=== PATIENT | female | born 1970 | race Caucasian/White ===

== ENCOUNTER → 2018-07-26 | Outpatient (CLI) | payer OTHER | LOC: RAD 16:22 | DX: R05 Cough (principal) ==

== ENCOUNTER → 2020-08-27 | Outpatient (CLI) | payer OTHER | LOC: CAT 09:27 | PROVIDERS: ATTEND Nurse Practitioner | DX: K76.0 Fatty (change of) liver, not elsewhere classified (principal); E27.8 Other specified disorders of adrenal gland; N83.202 Unspecified ovarian cyst, left side ==

== ENCOUNTER → 2020-08-28 | Outpatient (CLI) | payer OTHER | LOC: ULTRA 13:45 | PROVIDERS: ATTEND Nurse Practitioner | DX: N83.202 Unspecified ovarian cyst, left side (principal); R10.2 Pelvic and perineal pain ==

== ENCOUNTER 2020-09-30 04:51 | Inpatient (IN) | payer OTHER ==
[~2020-09-30] VITALS: Ht 177.8 cm; Wt 104.8 kg
[2020-09-30] VITALS (7 sets, daily range): BP systolic 132–166; BP diastolic 73–111
[2020-09-30 06:37] LABS: ABSOLUTE NEUTROPHILS 14.9 thou/uL (1.4-8.2); BASOPHILS 0.6 % (0.0-2.0); EOSINOPHILS 0.6 % (0.0-3.0); HEMATOCRIT 43.2 % (37.0-47.0); HEMOGLOBIN 14.4 gm/dL (12.0-15.0); LYMPHOCYTES 7.3 % (24.0-44.0); MCH 30.1 pg (26.0-34.0); MCHC 33.2 g/dL (28.0-37.0); MCV 90.6 fL (80.0-100.0); MONOCYTES 5.6 % (1.0-8.0); PLATELET COUNT 392 thou/uL (150-400); POLYS 85.9 % (36.0-66.0); RBC 4.77 mil/uL (4.20-5.00); RDW 13.6 % (10.5-14.5); WBC 17.4 thou/uL (4.0-11.0)
[2020-09-30 07:01] LABS: ANION GAP 12 mmol/L (7-16); BUN 11 mg/dL (7-18); CALCIUM 9.2 mg/dL (8.5-10.1); CHLORIDE 99 mmol/L (98-107); CO2 24 mmol/L (21-32); CREATININE 0.7 mg/dL (0.6-1.0); GLUCOSE 112 mg/dL (74-106); SODIUM 135 mmol/L (136-145)
[2020-09-30 07:11] LABS: ALBUMIN 3.7 g/dL (3.4-5.0); SGOT 33 U/L (15-37); SGPT 67 U/L (30-65); TOTAL BILIRUBIN 0.9 mg/dL (0.2-1.0); TOTAL PROTEIN 7.2 g/dL (6.4-8.2); TROPONIN-I <0.06 ng/mL (<0.06)
[2020-09-30] MEDS ORDERED: CIPRO500 M1 PO (07:15)
[2020-09-30] MEDS ORDERED: ASA81BEC PO (07:15)
[2020-09-30] MEDS ORDERED: FLAGYL500 M1 PO (07:15)
[2020-09-30] MEDS ORDERED: NORVASC5 MG PO ×2 (07:19→07:20)
[2020-09-30] MEDS ORDERED: PROZAC20 M1 PO (07:28)
[2020-09-30] MEDS ORDERED: LOSARTAN-HCTZ1 EAC3 PO (07:28)
[2020-09-30 07:43] LABS: URINE BILIRUBIN NEGATIVE (Negative); URINE BLOOD NEGATIVE (Negative); URINE CLARITY CLEAR; URINE COLOR YELLOW; URINE GLUCOSE-RANDOM* NEGATIVE (Negative); URINE KETONES TRACE (Negative); URINE LEUKOCYTES-REFLEX NEGATIVE (Negative); URINE NITRITE-REFLEX NEGATIVE (Negative); URINE PROTEIN (DIPSTICK) NEGATIVE (Negative); URINE UROBILINOGEN 0.2 E.U./dl (0.2-1.0)
--- NOTE | 2020-09-30 15:04 | NUR ---
ASSESSMENT: CM REVIEWED CHART AND MET WITH PT AND HER SPOUSE AT THE BEDSIDE. PT WAS ADMITTED DUE TO PELVIC PAIN. CT SHOWING DIVERTICULITIS AND EDOMETRIAL FLUID COLLECTION AND ADRENAL MASS. PT IS CURRENTLY ON IV ANBX AND ID HAS BEEN CONSULTED. GI CONSULT, PAID SEARCH MARKETING STRATEGIST CONSULT, GENERAL SURGERY CONSULT WELL. PT REPORTS LIVING IN A HOUSE WITH HER . PT REPORTS A FEW STEPS TO ENTER AND NO STEPS SHE HAS TO USE ONCE INSIDE STATING ALL HER NEEDS ARE ON THE MAIN LEVEL. PT REPORTS BEING INDEPENDENT WITH ADLS AND AMBULATION. PT HAS NO PAST HX OF HH OR SNF. CM DISCUSSED ROLE. PT DOES NOT ANTICIPATE HAVING ANY NEEDS FROM CM. CM WILL CONTINUE TO FOLLOW.
--- NOTE | 2020-09-30 16:18 | EKG ---
[address] [address] ELECTROCARDIOGRAM REPORT Name: CHRISTI FELIZ Room #: 363-P ADM IN M.R.#: [id number] Admission: 09/30/20 Attend Phys: Darrius Delacruz MD Discharge: Date of : 66 Report #: [id number] [facility] ED Test Date: 2020-09-30 Test Time: 05:54:23 Pat Name: CHRISTI FELIZ Department: Room: 363 Gender: F [place] Aud[place]: del : 1970 Requested By: Jocelyn Raymond Order Number: [id number] MD: Ishan Bautista Measurements Intervals Rochert Rate: 80 P: 17 MN: 150 QRS: -14 QRSD: 94 T: 14 QT: 383 QTc: 442 Interpretive Statements Sinus rhythm No previous ECG available for comparison Electronically Signed On 09-30-2020 16:18:41 CDT by Ishan Bautista [email or web address] <ELECTRONICALLY SIGNED> By: Ishan Bautista MD, [facility] 09/30/20 1618 [id number] [id number] Ishan Bautista MD, FACC /EPI
--- NOTE | 2020-09-30 18:21 | NUR ---
PT ADMITTED FROM ER ABOUT 1300PM, PT IS A&OX3, PT 'S VS ARE STABLE, PT STARTS IV FLUID AND IV ABX, PT'S VS ARE STABLE, PT'S ABD PAIN AND N/V HAVE IMPROVED.
--- NOTE | 2020-10-01 03:04 | NUR ---
PT IS A/O X4 AND IS UP AD JUMANA IN ROOM. ON ROOM AIR. VOIDS PER TOILET. NO BM THIS SHIFT. C/O ABDOMINAL PAIN. PRN PAIN MEDICATION GIVEN DIRECTED. VSS. AFEBRILE. CALL LIGHT IS WITHIN REACH. CALLS OUT APPROPRIATELY. WILL CONTINUE TO MONITOR.
[2020-10-01 04:29] VITALS: BP 173/92
[2020-10-01 05:30] LABS: HEMATOCRIT 39.9 % (37.0-47.0); HEMOGLOBIN 13.4 gm/dL (12.0-15.0); MCH 30.5 pg (26.0-34.0); MCHC 33.7 g/dL (28.0-37.0); MCV 90.5 fL (80.0-100.0); RBC 4.41 mil/uL (4.20-5.00); RDW 13.5 % (10.5-14.5); WBC 16.8 thou/uL (4.0-11.0)
[2020-10-01 06:03] LABS: CALCIUM 8.5 mg/dL (8.5-10.1); CREATININE 0.7 mg/dL (0.6-1.0); MAGNESIUM 1.8 mg/dL (1.8-2.4)
[2020-10-01 06:07] LABS: POTASSIUM 2.9 mmol/L (3.5-5.1)
[2020-10-01 07:41] VITALS: BP 183/91
--- NOTE | 2020-10-01 11:16 | NUR ---
ASSUMED PT CARE THIS AM. PT A&OX4. PATIENT REMAINS CONTINENT, AMBULATES INDEPENDENTLY. RECEIVED AN ORDER FOR TYLENOL FOR HEADACHE PAIN, REPORTED DECREASED PAIN WHEN REASSESSED. IV PATENT, FLUIDS INFUSING WELL. GIVING PO POTASSIUM REPLACEMENT ORDERED. FALL PRECAUTIONS IN PLACE, CALL LIGHT IN REACH.
[2020-10-01 11:19] VITALS: BP 143/73
--- NOTE | 2020-10-01 12:24 | HC ---
[facility] [place] [address] CONSULTATION Name: CHRISTI FELIZ Room #: 363-P ADM IN M.R.#: [id number] Admission: 09/30/20 Attend Phys: Darrius Delacruz MD Discharge: Date of : 66 Report #: [id number] THIS REPORT FOR: cc: Laron Morelos James A. DO Barry, Joseph W. MD ~ DOC #: [id number] Jake Bell MD DATE OF SERVICE: 09/30/2020 INFECTIOUS DISEASE CONSULTATION ATTENDING PHYSICIAN: Dr. Delacruz. REASON FOR EVALUATION: Acute sigmoid diverticulitis. HISTORY OF PRESENT ILLNESS: This 50-year-old has history of hypertension, depression, apparently has been ill for a number of days, has been evaluated and was found to have some endometrial fluid collection, uncertain etiology. The patient was treated empirically with combination therapy, ciprofloxacin and Flagyl, had been treated for about 9 days of a planned 10-day course, presented with persistent pain, did have associated nausea without diarrhea, not clear that she had fevers, although did admit to chills, some anorexia with poor p.o. intake. Denied any pulmonary-related complaints. Evaluation was undertaken, leukocytosis with white count of 17.4. Chest x-ray was otherwise unremarkable. CT abdomen and pelvis with three particular abnormalities including acute sigmoid diverticulitis, also the above-mentioned endometrial fluid collection and an adrenal mass that apparently had been seen on previous CT, it increased in size, on the right side. CTA chest showed no evidence of PE and was given a single dose of piperacillin and tazobactam, was evaluated by surgery. No surgical indication favored V antibiotics. ALLERGIES: None known. MEDICATIONS: Include fluoxetine, amlodipine, aspirin, Zosyn, tramadol, ondansetron as needed. PAST MEDICAL HISTORY: Hypertension, depression, adrenal mass. SOCIAL HISTORY: Occasional ethanol. Former smoker. No illicit drug use. FAMILY HISTORY: Noncontributory. REVIEW OF SYSTEMS: Otherwise, unremarkable. PHYSICAL EXAMINATION: [facility] [address] [place] [address] CONSULTATION Name: CHRISTI FELIZ Room #: 363-P [facility] IN ..#: [id number] Admission: 09/30/20 Attend Phys: Darrius Delacruz MD Discharge: Date of : 66 Report #: [id number] GENERAL: She is alert, cooperative, mild to moderate distress, reasonably well nourished. VITAL SIGNS: Temperature 98.3, pulse 82, respirations 18, blood pressure 132/87. SKIN: Warm, dry, no rashes. HEENT: Normocephalic. Extraocular muscles intact. NECK: Supple. LUNGS: Clear breath sounds. HEART: Regular. I do not appreciate a murmur. ABDOMEN: Soft, is somewhat tender to palpation, primarily in the lower quadrants. No overt peritoneal signs. GENITOURINARY AND RECTAL: Deferred. LABORATORY DATA: Imaging as noted above. Lactic acid 1.4. Troponin less than 0.06. Urinalysis unremarkable. Electrolytes: Sodium 135, potassium 4, chloride 99, bicarbonate is 24, anion gap of 12, BUN and creatinine 11 and 0.7, glucose of 112, AST 33, ALT of 67, albumin 37, total protein 7.2. D-dimer 0.64. Lipase of 81. ASSESSMENT AND PLAN: Acute sigmoid diverticulitis in a patient who has not had previous experiences that she is aware of. She is not aware of any imaging confirmed that diverticulosis either. We will continue empiric therapy with piperacillin and tazobactam, could give us good coverage for presumed mixed etiology as well as including aerobes, anaerobes, gram negatives, see how she does clinically. Ideally, would resolve with conservative measures including antibiotics and see how she does. Two to three days ____ transition to p.o. antibiotics prior to discharge. Noted other issues with the fluid collection may need evaluation from gynecology, left adrenal mass. It is not clear whether she is a candidate for percutaneous access. We will continue to monitor expectantly. Add incentive spirometry. Supportive care. MD WHIT Mejia/WILL/KRISTIE <ELECTRONICALLY SIGNED> By: Jake Bell MD 10/01/20 1224 [id number] Jake Bell MD /nt
--- NOTE | 2020-10-01 15:11 | NUR ---
SW reviewed chart and spoke with nursing and attending physician. Pt is progressing towards goals for discharge. Pt is on IV abx. Pt's diet advanced to full liquids today. Plan for outpatient colonoscopy in 4-6 weeks per GI. Pt will discharge home when medically stable. [facility]TWON is following to assist as needed with discharge planning.
[2020-10-01 16:04] VITALS: BP 129/83
[2020-10-01 20:29] VITALS: BP 141/84
[2020-10-02 04:55] VITALS: BP 155/91
[2020-10-02 05:26] LABS: HEMATOCRIT 37.9 % (37.0-47.0); HEMOGLOBIN 12.5 gm/dL (12.0-15.0); MCH 30.4 pg (26.0-34.0); MCHC 32.8 g/dL (28.0-37.0); MCV 92.7 fL (80.0-100.0); RBC 4.09 mil/uL (4.20-5.00); RDW 13.4 % (10.5-14.5); WBC 16.5 thou/uL (4.0-11.0)
[2020-10-02 05:34] LABS: CALCIUM 8.5 mg/dL (8.5-10.1); CREATININE 0.6 mg/dL (0.6-1.0); MAGNESIUM 1.9 mg/dL (1.8-2.4); POTASSIUM 3.5 mmol/L (3.5-5.1)
--- NOTE | 2020-10-02 07:33 | NUR ---
PT MAKING SLOW PROGRESS TOWARDS GOALS. C/O PAIN, HEADACHE. MILD RELIEF WITH TYLENOL LAST NIGHT. PT REPORTS MORE RELIEF WITH ULTRAM THIS AM. PT REPORTING CONSTANT LEVEL OF ABDOMINAL PAIN. SEE CHARTING.
[2020-10-02 08:03] VITALS: BP 139/79
--- NOTE | 2020-10-02 11:09 | NUR ---
Per Dr. Bell need repeat CT today. Pt A/O, able to participate in rounds.
--- NOTE | 2020-10-02 13:31 | NUR ---
SW reviewed chart and spoke with nursing and attending physician. Pt is slowly progressing towards goals for discharge. Pt remains on IV abx. Pt is on a full liquid diet. Pt was off the unit earlier having abdominal/pelvis CT. No weekend discharge anticipated. Plan is for pt to discharge home when medically stable. ANTWON is following to assist as needed with discharge planning.
[2020-10-02 19:58] VITALS: BP 132/78
[2020-10-03 04:48] VITALS: BP 170/93
--- NOTE | 2020-10-03 06:11 | NUR ---
Patient making slow progress towards outcme goals. Good pain control with Toradol and Tramadol. Up adlib, gait steady. IVFluids infusing. Difficult IV stick. @$ hour urine collection in place. Vital signs stable.
[2020-10-03 07:54] LABS: HEMATOCRIT 41.2 % (37.0-47.0); HEMOGLOBIN 13.6 gm/dL (12.0-15.0); MCH 30.4 pg (26.0-34.0); MCHC 33.1 g/dL (28.0-37.0); MCV 91.8 fL (80.0-100.0); RBC 4.48 mil/uL (4.20-5.00); RDW 13.8 % (10.5-14.5); WBC 13.9 thou/uL (4.0-11.0)
[2020-10-03 08:07] VITALS: BP 147/86
[2020-10-03 08:11] LABS: CREATININE 0.6 mg/dL (0.6-1.0); MAGNESIUM 2.1 mg/dL (1.8-2.4); POTASSIUM 3.9 mmol/L (3.5-5.1)
[2020-10-03 16:48] VITALS: BP 135/80
[2020-10-03 19:36] VITALS: BP 129/67
--- NOTE | 2020-10-03 19:52 | NUR ---
RN ASSUMED PT'S CARE AT O700AM, PT IS A&OX4, PT IS CONTINUING IV ABX, PT'S VS ARE STABLE, PT DENIES ABD PAIN AND N/V AT DAY SHIFT.
--- NOTE | 2020-10-04 02:29 | NUR ---
ASSESSMENT: PT REMAIN ALERT AND ORIENT TIMES FOUR. UP AD JUMANA TO BR. VSS, AFEBRILE. SR, NOT BEING MONITORED R/T MS STATUS. DENIES ABD PAIN. RECEIVING ANTIBX'S IVPB. L AC PATENT. 24 URINE COLLECTION DONE, RESULTS PENDING. GOOD PROGRESS TOWARDS DC GOALS.
[2020-10-04 04:39] VITALS: BP 150/89
[2020-10-04 04:57] LABS: CALCIUM 8.8 mg/dL (8.5-10.1); CREATININE 0.7 mg/dL (0.6-1.0); POTASSIUM 3.3 mmol/L (3.5-5.1)
[2020-10-04 04:58] LABS: HEMATOCRIT 36.6 % (37.0-47.0); HEMOGLOBIN 12.5 gm/dL (12.0-15.0); MONOCYTES 9.4 % (1.0-8.0); RBC 4.04 mil/uL (4.20-5.00)
[2020-10-04 05:02] LABS: ABSOLUTE NEUTROPHILS 9.3 thou/uL (1.4-8.2); BASOPHILS 1.1 % (0.0-2.0); LYMPHOCYTES 16.1 % (24.0-44.0); MCHC 34.2 g/dL (28.0-37.0); MCV 90.5 fL (80.0-100.0); PLATELET COUNT 442 thou/uL (150-400); POLYS 71.4 % (36.0-66.0); RDW 13.6 % (10.5-14.5)
[2020-10-04 07:25] VITALS: BP 139/87
[2020-10-04 15:11] VITALS: BP 140/91
--- NOTE | 2020-10-04 18:46 | NUR ---
RN ASSUMED PT'S CARE AT 0700AM, PT IS A&OX 4, PT IS CONTINUING IV ABX , PT'S VS ARE STABLE, PT GETS UP TO WALK IN HALLWAY, PT DENIES PAIN AND N/V BY THIS TIME.
[2020-10-04 19:18] VITALS: BP 134/90
[2020-10-05 04:04] VITALS: BP 151/89
[2020-10-05 05:25] LABS: HEMATOCRIT 39.2 % (37.0-47.0); HEMOGLOBIN 13.2 gm/dL (12.0-15.0); MCH 30.6 pg (26.0-34.0); MCHC 33.7 g/dL (28.0-37.0); MCV 90.8 fL (80.0-100.0); RBC 4.32 mil/uL (4.20-5.00); RDW 13.7 % (10.5-14.5); WBC 11.1 thou/uL (4.0-11.0)
[2020-10-05 05:31] LABS: CALCIUM 8.6 mg/dL (8.5-10.1); CREATININE 0.6 mg/dL (0.6-1.0); POTASSIUM 3.6 mmol/L (3.5-5.1)
--- NOTE | 2020-10-05 05:32 | NUR ---
C/O headache ,tylenol given with good relief. Ambulated in hallway last night. Tolerating room air well and she has been a febrile. She stated she slept well last night. Deies any other concern. Making some progress towards care plan goals.
[2020-10-05 07:04] VITALS: BP 132/76
[2020-10-05] MEDS ORDERED: AMOX TR-K CLV1 EAC4 PO (11:55)
[2020-10-05 12:16] VITALS: BP 132/76
--- NOTE | 2020-10-05 13:54 | NUR ---
DISCHARGE NOTE: SW reviewed chart and spoke with nursing and attending physician. Pt is medically stable for discharge home today. No discharge needs identified at this time. Pt's family to provide transportation home. SW is available to assist should needs arise.
--- NOTE | 2020-10-05 14:04 | NUR ---
RN ASSUMED PT'S CARE AT 0700AM, PT IS A&OX3, PT 'S ABD PAIN AND INFECTION HAVE IMPROVED, PT'S IV ABX HAS CHANGED TO PO, PT'S VS ARE STABLE,RN RECEIVED TO DC PT TO HOME, PT UNDERSTANDED DC TEACHING WELL, PT'S FAMILY PUBLIC HEALTH ANALYST PT TO HOME NOW.
[2020-10-06 17:06] LABS: RENIN 2.596 ng/mL/hr (0.167-5.380)
== END 2020-10-05 14:17 | disposition home or self-care (01) | DRG 872 ==
LOC: ER 04:51 → 3W 11:19 → EROBS 11:19 → 3W 12:32
PROVIDERS: Emergency Medicine; Hospitalist; Internal Medicine; Surgery; ADMIT Internal Medicine; ATTEND Internal Medicine
DX: A41.9 Sepsis, unspecified organism (principal); K57.20 Diverticulitis of large intestine with perforation and abscess without bleeding; E27.9 Disorder of adrenal gland, unspecified; F32.9 Major depressive disorder, single episode, unspecified; E66.9 Obesity, unspecified; I10 Essential (primary) hypertension; N71.9 Inflammatory disease of uterus, unspecified; Z79.82 Long term (current) use of aspirin; Z79.899 Other long term (current) drug therapy; Z87.891 Personal history of nicotine dependence; Z90.49 Acquired absence of other specified parts of digestive tract; Z68.33 Body mass index [BMI] 33.0-33.9, adult
CPT/HCPCS: 10080

== ENCOUNTER → 2020-11-02 | Outpatient (CLI) | payer OTHER ==
[~2020-11-02] MED LIST: AMOX TR-K CLV1 EAC4 PO; ASA81BEC PO; CIPRO500 M1 PO; FLAGYL500 M1 PO; LOSARTAN-HCTZ1 EAC3 PO; NORVASC5 MG PO; PROZAC20 M1 PO
== END ==
LOC: CAT 10-28 15:17
PROVIDERS: ATTEND Family Medicine
DX: K57.30 Diverticulosis of large intestine without perforation or abscess without bleeding (principal); M62.89 Other specified disorders of muscle

== ENCOUNTER → 2020-11-20 | Outpatient (CLI) | payer OTHER ==
[~2020-11-20] VITALS: Ht 177.8 cm; Wt 102.1 kg
[~2020-11-20] MED LIST changes: +AUGMENTIN 875-1 EACH PO
--- NOTE | 2020-11-21 09:41 | P ---
[facility] [place] [address] PROCEDURE REPORT Name: CHRISTI FELIZ Room #: REG [facility] Alissa#: [id number] Admission: 11/20/20 Attend Phys: Piyush Banegas Discharge: Date of : 66 Report #: [id number] THIS REPORT FOR: cc: Laron Morelos James A. DO McElhinney, Christian C. MD ~ cc: Laron Morelos DO DATE OF SERVICE: 11/20/2020 PROCEDURE PERFORMED: Colonoscopy with biopsies. HISTORY OF PRESENT ILLNESS: The patient is a 50-year-old female who was admitted in September for a first episode of diverticulitis, left lower quadrant abdominal pain. CT scan on 10/01/2020 showing changes of acute diverticulitis without abscess. The patient was treated with IV antibiotics, later p.o. antibiotics. She has now required 3-4 courses of oral antibiotics. Whenever she finishes the antibiotics, she has recurrent left lower quadrant abdominal pain and typically is not having pain while on the antibiotics. She did have a repeat CT scan on 11/02/2020, which shows the previous diverticulitis has resolved. She also had right adrenal mass that was unchanged from previous CT. The patient has never had a colonoscopy before. No family history of colon cancer. DESCRIPTION OF PROCEDURE: The risks and benefits of the procedure were explained to the patient, those risks including but not limited to bleeding, perforation and the risk of sedation. She understood these risks and gave informed consent. Sedation was given using propofol per Anesthesia. Next, a digital rectal exam was initially performed, which was normal. Next, using a pediatric Olympus colonoscope, the scope was placed in the patient's anus and advanced under direct vision to the cecum. The overall prep was excellent. The cecum and ileocecal valve were normal in appearance. Ascending, transverse, descending colon were normal. Multiple small diverticula were noted in the sigmoid colon. No evidence of inflammation, otherwise normal. In the rectum, a 3 mm sessile polyp was noted. This was removed with cold forceps. On retroflexion, no abnormalities were noted. The scope was then withdrawn and the procedure terminated. The patient tolerated the procedure well. IMPRESSION: 1. Sigmoid diverticulosis without evidence of inflammation. 2. Small rectal polyp. 3. Otherwise, normal colonoscopy. RECOMMENDATIONS: 1. Await biopsy results. 2. If polyp is hyperplastic repeat in 10 years, if adenomatous polyp repeat in [address] [address] PROCEDURE REPORT Name: CHRISTI FELIZ Room #: REG [facility] Alissa#: [id number] Admission: 11/20/20 Attend Phys: Piyush Banegas Discharge: Date of : 66 Report #: [id number] [address] shows resolution of diverticulitis. No evidence of inflammation in the diverticula and the sigmoid colon on endoscopy today. Unclear why the patient is having pain after finishing the antibiotics. At this time, we will add Levsin and complete this next course of antibiotics and see if this is helpful. Thank you for allowing me to participate in her care. <ELECTRONICALLY SIGNED> By: Piyush Lyons MD 11/21/20 0941 [id number] [id number] Piyush Lyons MD /nt
--- NOTE | 2020-11-23 18:06 | PATH ---
[facility] [address] [place] [address] PATHOLOGY RPT PROCEDURE Name: LEYDA FELIZ Room #: REG [facility] Pooja.#: [id number] Admission: 11/20/20 Date of : 66 Discharge: Report #: [id number] Path Case #: [id number] [facility] Accession Number: [id number] . 01 Material submitted: . rectum - BIOPSY RECTAL POLYP . 01 Clinical history: . COLONOSCOPY DIVERTICULITIS . 02 Diagnosis: Polyp, rectal polyp, endoscopic biopsy: - Hyperplastic polyp. - Negative for dysplasia. (IUV/db; 11/23/2020) LBQ 11/23/2020 1516 Local . 02 Electronically signed: . Piedad Bassett MD, Pathologist NPI- [id number] . 01 Gross description: . The specimen is received in formalin, labeled "Leyda Wollerman, biopsy rectal polyp". Received are two segments of pale abdul tissue measuring 0.3 and 0.5 cm in maximum dimensions. The specimen is submitted entirely in cassette A1. (CAA; 11/22/2020) QAC/QAC 11/22/2020 1510 Local . 02 Pathologist provided ICD-10: K62.1 . 02 CPT . 058888 Specimen Comment: A courtesy copy of this report has been sent to [phone], [phone]- Specimen Comment: [id number] Specimen Comment: Report sent to / DR ALEX Performed at: [address], [place] [id number] MD Magnus Chinchilla MD Phone: [phone] Performed at: [address] [id number] MD Piedad Bassett MD Phone: [phone]
== END | disposition home or self-care (01) ==
LOC: GI 06:55
PROVIDERS: ATTEND Specialist
DX: R10.32 Left lower quadrant pain (principal); K62.1 Rectal polyp; K57.30 Diverticulosis of large intestine without perforation or abscess without bleeding; I10 Essential (primary) hypertension; Z98.890 Other specified postprocedural states; Z79.899 Other long term (current) drug therapy; Z87.891 Personal history of nicotine dependence; Z87.19 Personal history of other diseases of the digestive system
CPT/HCPCS: 62110; 62900

== ENCOUNTER → 2021-01-14 | Outpatient (CLI) | payer OTHER ==
[~2021-01-14] MED LIST changes: +ATENOLOL 25 MG25 M1 PO; +DOXAZOSIN MESYLA2 MG PO; +PROZAC40 MG PO; +VITAMIN C500 M2 PO
[2021-01-14 08:24] LABS: HEMATOCRIT 42.6 % (37.0-47.0); HEMOGLOBIN 14.4 gm/dL (12.0-15.0); MCH 30.6 pg (26.0-34.0); MCHC 33.8 g/dL (28.0-37.0); MCV 90.4 fL (80.0-100.0); RBC 4.71 mil/uL (4.20-5.00); RDW 14.8 % (10.5-14.5); WBC 10.3 thou/uL (4.0-11.0)
[2021-01-14 08:41] LABS: CALCIUM 9.1 mg/dL (8.5-10.1); CREATININE 0.9 mg/dL (0.6-1.0)
== END ==
LOC: PAC 07:54
PROVIDERS: ATTEND Surgery
DX: Z01.812 Encounter for preprocedural laboratory examination (principal); I10 Essential (primary) hypertension

== ENCOUNTER 2021-01-27 08:55 | Inpatient (IN) | payer OTHER ==
[~2021-01-27] VITALS: Ht 177.8 cm; Wt 99.8 kg
[2021-01-27 11:31] VITALS: BP 134/72
[2021-01-27 16:10] LABS: HEMATOCRIT 38.5 % (37.0-47.0); HEMOGLOBIN 12.5 gm/dL (12.0-15.0); MCH 29.8 pg (26.0-34.0); MCHC 32.6 g/dL (28.0-37.0); MCV 91.4 fL (80.0-100.0); RBC 4.21 mil/uL (4.20-5.00); RDW 14.2 % (10.5-14.5); WBC 17.8 thou/uL (4.0-11.0)
[2021-01-27 16:32] LABS: CALCIUM 7.8 mg/dL (8.5-10.1); CREATININE 0.9 mg/dL (0.6-1.0); POTASSIUM 3.8 mmol/L (3.5-5.1)
[2021-01-27 16:34] LABS: APTT 25.4 Seconds (24.5-32.8); PROTIME 10.9 Seconds (10.5-12.1)
[2021-01-27 16:39] LABS: ALBUMIN 3.1 g/dL (3.4-5.0); TOTAL BILIRUBIN 0.6 mg/dL (0.2-1.0); TOTAL PROTEIN 6.3 g/dL (6.4-8.2)
--- NOTE | 2021-01-27 20:27 | NUR ---
Spoke with Dr. Ramirez informed him of patients vital signs and that no output from MICHEAL drain. Md stated to keep map >than 60 and to have the patient out of bed in the morning. chlorinator RN aware Changed A line pressure bag to 0.9% NS. .
[2021-01-28] VITALS (22 sets, daily range): BP systolic 82–110; BP diastolic 40–59
[2021-01-28 05:07] LABS: HEMATOCRIT 31.8 % (37.0-47.0); HEMOGLOBIN 10.8 gm/dL (12.0-15.0); MCH 31.5 pg (26.0-34.0); MCHC 33.9 g/dL (28.0-37.0); MCV 92.9 fL (80.0-100.0); RBC 3.42 mil/uL (4.20-5.00); RDW 14.5 % (10.5-14.5); WBC 15.1 thou/uL (4.0-11.0)
[2021-01-28 05:39] LABS: ALBUMIN 2.7 g/dL (3.4-5.0); CALCIUM 7.6 mg/dL (8.5-10.1); CREATININE 1.1 mg/dL (0.6-1.0); MAGNESIUM 1.6 mg/dL (1.8-2.4); PHOSPHORUS 2.9 mg/dL (2.5-4.9)
--- NOTE | 2021-01-28 15:07 | NUR ---
Chart review, POD # 1, discuss during unit rounds. Visited wit her spouse karina [phone]. Intro to cm and dcp. She lives at home with her . 2 step to enter the home and 13 stairs inside home. Independent. No dme. manage own medication. Drives vehicle. No hh or rehab in past. PCP Dr Morelos. No anticipated dc needs. Staying in icu r/t her b/p. Will cont following as needed for dc needs.
--- NOTE | 2021-01-28 15:51 | NUR ---
ALERT AND ORIENTED, UP TO THE CHAIR EARLIER TODAY AND TOLERATED WELL. MEDICATED FOR PAIN WITH SCHEDULED MEDS. TOLERATING DIET BUT POOR APPETITE. MARGINAL BP PER NON INVASICE CUFF AND DR. PRETTY NOTIFIED, NS BOLUS ORDERED AND ADMINISTERED. DR. WOODRUFF ROUNDED ON PATIENT AND ORDERED ANOTHER NS BOLUS. PATIENT'S BP CONTINUES TO BE MARGINAL AND ANOTHER BOLUS ORDERED BY DR. PRETTY AND ADMINISTERED. ORDERS RECEIVED TO US A-LINE BP AND KEEP MAP >55. SPOUSE AT THE BEDSIDE ALL DAY AND UPDATED.
[2021-01-29] VITALS (19 sets, daily range): BP systolic 84–110; BP diastolic 49–69
--- NOTE | 2021-01-29 03:49 | NUR ---
PT REMAIN ALERT AND ORIENT TIMES FOUR. UP TO BSC WITH STEADY GAIT, SBA R/T TUBING. NO BM THIS SHIFT. DID HAVE ADEQUATE UO OF 750 CURRENTLY. MAP PER ART LINE RANGED FROM 63-76. AFEBRILE. C/O UPPER RIGHT ABD QUAD PAIN. PRN OXYCONDONE ONE TAB PROVIDED ADEQUATE RELIEF OF PAIN PER PT. SLEPT MOST OF THE NIGHT. DENIED N/V AND SOB. DID C/O OF GASTRIC REFLUX AND REQUESTED TO HAVE MILK. PROTONIX TO START TODAY. TOLERATING PO INTAKE. SR PER MONITOR. NO LABS WERE ORDER FOR THIS AM. GOOD PROGRESS TOWARDS DC GOALS. WILL CONTINUE TO MONITOR.
[2021-01-29 11:37] LABS: HEMATOCRIT 30.3 % (37.0-47.0); HEMOGLOBIN 9.8 gm/dL (12.0-15.0); MCH 30.1 pg (26.0-34.0); MCHC 32.2 g/dL (28.0-37.0); MCV 93.5 fL (80.0-100.0); RBC 3.24 mil/uL (4.20-5.00); RDW 14.4 % (10.5-14.5); WBC 13.8 thou/uL (4.0-11.0)
[2021-01-29 11:51] LABS: ALBUMIN 2.7 g/dL (3.4-5.0); CALCIUM 7.9 mg/dL (8.5-10.1); CREATININE 0.9 mg/dL (0.6-1.0); PHOSPHORUS 1.6 mg/dL (2.5-4.9); POTASSIUM 3.9 mmol/L (3.5-5.1)
--- NOTE | 2021-01-29 12:32 | NUR ---
Discussed during unit rounds, possible able to move out to the floor. When medically stable to dc, home. No anticipated dc needs. dcp: home.
--- NOTE | 2021-01-29 17:39 | NUR ---
ASSUMED PT CARE AT 1700 FROM 2N. PT SI ALERT & ORIENTED 4. PT HAS IV SITE ON R IJ TRIPLE LUMEN PICC LINE. PT IS UP WITH ASSIST X1 TO THE BATHROOM. PT HAS MICHEAL DRAIN. PT TOLERATED MEDICATION AND DIET WELL. PT IS ON ROOM AIR DURING DAY AND USES 02 2L NC DURING NIGHT. PT WAS AT THE BEDSIDE. WILL CONTINUE TO MONITOR PT. FOLLOW POC.
--- NOTE | 2021-01-30 03:22 | NUR ---
ASSUMED CARE OF PT AT 1900. BEDSIDE REPORT RECIEVED. AT BEDSIDE. TIERNEY ASSESSMENT COMPLETE. MEDS ADMINISTERED ORDERED. PT DENIES ANY PAIN, REPORT PAIN LEVEL 2/10 ON RIGHT SIDE OF ABDOMEN BUT REPORTS TOLERABLE/COMFORTABLE LEVEL. R TL IJ CDI. R MICHEAL DRAIN CDI AND SECURED C TEGADERM. R ABDOMINAL INCISION IS CLEAN C NO DRAINAGE/REDNESS OR HEAT TO SITE. ASSISTED PT TO BATHROOM C SBA. ABDOMINAL BINDER REMOVED FOR COMFORT FOR SLEEP. PTS CALL LIGHT WAS PULED FROM WALL, RECONNECTED CALL LIGHT AND ENSURED CALL LIGHT WAS WORKING. PT DENIES ANY OTHER NEEDS AT THIS TIME, CALL LIGHT IN REACH
[2021-01-30 07:07] VITALS: BP 119/79
[2021-01-30 15:30] VITALS: BP 115/68
--- NOTE | 2021-01-30 17:12 | NUR ---
PT ASSESSED AT START OF SHIFT. DR. PRETTY IN EARLY TO SEE PT AND SHE WILL STAY UNTIL TOMORROW. DOING VERY WELL. PAIN CONTROLLED W/ MEDS. HAD 2 BM'S THIS AM. MIRALAX HELD BUT SOFTENER GIVEN. MICHEAL DRAIN DC'D W/ 40MLS SEROSANGUINOUS DRAINAGE PER ORDER. EATING AND DRINKING WELL. AMBULATED THE HALLS SEVERAL LAPS.
[2021-01-30 20:05] VITALS: BP 123/79
--- NOTE | 2021-01-31 01:46 | NUR ---
ASSUMED CARE OF PT AT 1900. BEDSIDE REPORT RECIEVED. TIERNEY ASSESSMENT COMPLETE. AT BEDSIDE. PT C/O 06/24 R ABDOMEN PAIN, REPORTS TOLERABLE/COMFORTABLE LEVEL. MEDS ADMINISTERED ORDERED ON JUL. ASSISTED PT TO WASH UP IN BATHROOM, COMPLETE BED LINEN CHANGE PROVIDED. R TL IJ CDI, PATENT. EDUCATION PROVIDED ON DISCHARGE PROCESS AND WHAT TO EXPECT. HOURLY ROUNDING CONTINUING. PT DENEIS ANY OTHER NEEDS AT THIS TIME. CALL LIGHT IN REACH.
[2021-01-31 08:12] VITALS: BP 122/64
[2021-01-31] MEDS ORDERED: IBUPROFEN 200200 M1 PO (12:14)
[2021-01-31] MEDS ORDERED: TYLENOL325 MG PO (12:14)
[2021-01-31] MEDS ORDERED: NEURONTIN 300M300 M2 PO ×2 (12:15→12:54)
[2021-01-31] MEDS ORDERED: MIRALAX17 GM PO (12:16)
[2021-01-31] MEDS ORDERED: COLACE 100 MG100 MG PO (12:16)
[2021-01-31] MEDS ORDERED: TRAMADOL 50 MG50 MG PO (12:17)
[2021-01-31 12:41] VITALS: BP 122/64
--- NOTE | 2021-01-31 13:10 | NUR ---
Nurse went over discharge teaching with patient and her at bedside. Tramadol and gabapentin sent to her pharmacy. Patient had no questions regarding discharge teaching. Right triple lumen IJ pulled, pressure and gauze appiled.
--- NOTE | 2021-02-01 19:07 | PATH ---
[facility] [place] [address] PATHOLOGY RPT PROCEDURE Name: LEYDA FELIZ Room #: 441-P [facility] M.R.#: [id number] Admission: 01/27/21 Date of : 66 Discharge: 01/31/21 Report #: [id number] Path Case #: [id number] [facility] Accession Number: [id number] . 01 Material submitted: . adrenal gland - RIGHT ADRENAL GLAND. Modifiers: right . 01 Clinical history: . LAPAROSCOPIC ADRENALECTOMY (+++) LAPAROSCOPIC CONVERT TO OPEN EXPLORATORY LAPAROTOMY (+++) RIGHT ADRENAL PHEOCHROMOCYTOMA . 02 Diagnosis: Adrenal gland, right, adrenalectomy: - Pheochromocytoma measuring 5.4 cm in greatest dimension. - Please see synoptic case summary assembled below along with diagnostic comment. - Focally disrupted capsule present. - No definitive lymphovascular space invasion present. (IUV:katelyn; 02/01/2021) . . SYNOPTIC PATHOLOGY CANCER CASE SUMMARY REPORT . Adrenal gland . Size (cm) - 5.4 cm Location - Adrenal gland Stevo lymph node metastases- Unknown Location distant metastases- Unknown 24 hr urinary fractional metanephrines and plasma metanephrines - Unknown Chromogranin A - strongly reactive Mitotic count - 5 percent (Ki-67 proliferative mitotic percentage) Germline mutation status- Unknown Plasma methoxytyramine - Unknown . 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 Regional lymph nodes (pN) pNX: regional lymph nodes cannot be assessed . Distant metastasis (pM) pMx- no known metastases at the time of this report . Other features PASS criteria (20): (see diagnosis comment below) Large nests (+2)- present [address] [address] PATHOLOGY RPT PROCEDURE Name: LEYDA FELIZ Room #: 441-P DIS IN ..#: [id number] Admission: 01/27/21 Date of : 66 Discharge: 01/31/21 Report #: [id number] Path Case #: [id number] Central or confluent necrosis (+2) - not identified High cellularity (+2)- present Cellular monotony (+2)- not identified Tumor cell spindling (+2)- present Mitotic figures greater than 3/10 hpf(+2)-identified Atypical mitotic figures(+2)- not identified Perirenal adipose tissue invasion (+2)- present Vascular invasion (+1)- not identified Capsular invasion(+1)- indeterminate due to disrupted capsule focally Profound nuclear pleomorphism(+1)- not present Nuclear hyperchromasia(+1)- present (IUV:building estimator; 01/29/2021) MBR 02/01/2021 1820 Local . 02 Comment: Examination shows a tumor with nested and trabecular pattern comprised of variable cellularity. Few cells with abundant eosinophilic cytoplasm are identified, others show scant cytoplasm. Focal spindle cell morphology is identified. Nuclear pleomorphism is identified within several areas examined. Based on the PASS (Pheochromocytoma of the Adrenal Gland Scoring Scale) to assess the malignant potential for this tumor (please see reference article below) the current tumor has approximately 5 mitoses per 10 high power bean, spindle cell morphology (less than 10 percent of the entire tumor), as well as nuclear pleomorphism noted, and large cell nests which raises the malignant potential of the same. Of note, there is periadrenal adipose tissue involvement. There are no atypical mitoses, necrosis, vascular invasion, or definitive capsular invasion (focally disrupted capsule on the surgically resected specimen received) identified. The tumor has a total score of 11/20 points, per article referenced below a score of greater than 4/20 was associated with increased malignant potential. Clinical correlation with intraoperative findings is suggested for complete resection of this tumor along with clinical follow-up as indicated. . Multiple properly controlled immunohistochemical stains are performed on block A7 and are interpreted as follows: . The tumor shows strong reactivity to chromogranin as well as synaptophysin. The tumor shows no reactivity with AE1/AE3, as well as inhibin protein. S100 shows decreased overall reactivity due to the presence of large cell nests and shows nuclear reactivity within several cells. Ki-67 shows approximately 5% proliferative activity within the tumor in several foci examined. MART1-red immunohistochemical stain is not reactive. . Findings of this case are discussed with Dr. John Ramirez in the afternoon of 02/01/2021. [facility] [address] [place] [address] PATHOLOGY RPT PROCEDURE Name: LEYDA FELIZ Room #: 441-P DIS IN M.R.#: [id number] Admission: 01/27/21 Date of : 66 Discharge: 01/31/21 Report #: [id number] Path Case #: [id number] (IUV;building estimator/katelyn; 02/01/2021) . . Ref: Am J Surg Pathol. 2001;26(5):551-66. doi: 10.1097/[id number]. . 02 Electronically signed: . Piedad Bassett MD, Pathologist NPI- [id number] . 01 Gross description: . The specimen is received in formalin, labeled "Leyda Feliz, right adrenal gland" and consists of a 31 g predominantly intact and focally disrupted (0.7 x 0.3 cm and 1.2 x 1.2 cm) garcia-brown and dusky orange adrenal gland (5.4 x 4.1 x 3.1 cm). The areas of disruption are inked yellow and the remaining surface is inked black. Sectioning reveals a rim of abdul-garcia, dusky formalin fixed tissue with a central pink-red, soft ill-defined unfixed area of discoloration (4.3 x 3.0 x 1.6 cm). A focal, slightly darker brown and hemorrhagic markedly ill-defined area of discoloration (1.4 x 0.9 x 0.9 cm) is identified. No discrete lesions or normal adrenal parenchyma is identified. Photographs are taken. The specimen is submitted sequentially, entirely, per diagram in A1-A34. (SOLOMON; 01/28/2021) DKA/DKA 01/28/2021 1345 Local . 02 Pathologist provided ICD-10: D35.01 . 02 CPT . 810135, A29766, S85262, 027131 Specimen Comment: A courtesy copy of this report has been sent to [phone], [phone] Specimen Comment: [id number] Specimen Comment: Report sent to , DR ALEX, / DR MONTES Performed at: [address] [facility], [place] [id number] MD Magnus Chinchilla MD Phone: [phone] Performed at: [address] [facility] [id number] MD Piedad Bassett MD Phone: [phone]
== END 2021-01-31 13:13 | disposition home or self-care (01) | DRG 615 ==
LOC: ICU 08:55 → TBA 08:55 → OR 09:49 → EDSTATUS 14:48 → PRE 14:55 → TBA 17:14 → ICU 18:44 → 4S 01-29 16:57
PROVIDERS: ADMIT Surgery; ATTEND Surgery
PROC: 0GT30ZZ Resection of Right Adrenal Gland, Open Approach (ICD-10-PCS; principal; 2021-01-27)
PROC: 0WJH4ZZ Inspection of Retroperitoneum, Percutaneous Endoscopic Approach (ICD-10-PCS; principal; 2021-01-27)
PROC: 30233N1 Transfusion of Nonautologous Red Blood Cells into Peripheral Vein, Percutaneous Approach (ICD-10-PCS; principal; 2021-01-27)
PROC: 02HV33Z Insertion of Infusion Device into Superior Vena Cava, Percutaneous Approach (ICD-10-PCS; 2021-01-27)
DX: D35.01 Benign neoplasm of right adrenal gland (principal); I10 Essential (primary) hypertension; E83.42 Hypomagnesemia; E83.39 Other disorders of phosphorus metabolism; F32.9 Major depressive disorder, single episode, unspecified; Z20.822 Contact with and (suspected) exposure to COVID-19; Z95.0 Presence of cardiac pacemaker
CPT/HCPCS: 10078; 10100; 50010; 50101; 50386; 50411; 50455; 50555; 51489; 51687; 52265; 52266; 52287; 53307; 53310; 54022; 55245; 56462; 56524; 56525; 56526; 56527; 56668; 58574; 58587; 58637; 58911; 58984; 62110; 62900; 65002; 65020; 65045; 65090; 70005

== ENCOUNTER → 2021-02-25 | Outpatient (CLI) | payer OTHER ==
[~2021-02-25] MED LIST changes: +COLACE 100 MG100 MG PO; +IBUPROFEN 200200 M1 PO; +MIRALAX17 GM PO; +NEURONTIN 300M300 M2 PO; +TRAMADOL 50 MG50 MG PO; +TYLENOL325 MG PO
== END ==
LOC: BC 14:23
PROVIDERS: ATTEND Nurse Practitioner
DX: Z12.31 Encounter for screening mammogram for malignant neoplasm of breast (principal)

== ENCOUNTER → 2021-03-25 | Outpatient (CLI) | payer OTHER | LOC: SJCVCIMAG 07:00 | PROVIDERS: ATTEND Internal Medicine | DX: R07.9 Chest pain, unspecified (principal); R00.2 Palpitations; R53.83 Other fatigue; I10 Essential (primary) hypertension; R06.00 Dyspnea, unspecified ==